=== PATIENT | male | born 1950 | race African-American/Black ===

== ENCOUNTER 2019-11-22 01:03 | Emergency (ER) | payer MEDICARE, OTHER ==
[~2019-11-22] VITALS: Ht 177.8 cm; Wt 97.5 kg
[2019-11-22 01:40] LABS: Basophils # (auto) 0.2 10 ^3/uL (0-0.2); Basophils % (auto) 2.9 % (0.0-2.0); Eosinophils # (auto) 0.1 10 ^3/uL (0-0.8); Eosinophils % (auto) 2.3 % (0.0-7.0); Hematocrit 45.6 % (41.0-53.0); Hemoglobin 15.2 g/dL (13.5-17.5); Lymphocytes # (auto) 2.5 10 ^3/uL (0.4-5.4); Lymphocytes % (auto) 44.2 % (10.0-50.0); Mean Corpuscular Hemoglobin 32.7 pg (28.0-32.0); Mean Corpuscular Hgb Conc. 33.4 g/dL (32.0-36.0); Mean Corpuscular Volume 97.9 fL (80.0-100.0); Monocytes # (auto) 0.7 10 ^3/uL (0-1.3); Monocytes % (auto) 13.3 % (0.0-12.0); Neutrophils # (auto) 2.1 10 ^3/uL (1.6-8.6); Neutrophils % (auto) 37.3 % (37.0-80.0); Nucleated Red Blood Cells % 1.3 %; Platelet Count (auto) 190 10^3/uL (140-450); Red Blood Cells 4.65 10^6/uL (4.5-5.90); Red Cell Distribution Width 13.7 % (11.8-14.3); White Blood Cell 5.6 10^3/uL (4.4-10.8)
[2019-11-22 01:54] LABS: Albumin 3.6 g/dL (3.4-5.0); Anion Gap 6 (5-15); Blood Urea Nitrogen 15 mg/dL (7-18); Calcium 8.9 mg/dL (8.5-10.1); Carbon Dioxide 27 mmol/L (21-32); Chloride 106 mmol/L (98-107); Glucose 113 mg/dL (74-106); Sodium 139 mmol/L (136-145)
[2019-11-22 01:58] LABS: Alanine Aminotransferase 20 U/L (16-61); Aspartate Aminotransferase 16 U/L (15-37); BUN/Creatinine Ratio 12.9; GFR African American 81 mL/min; GFR Non-African American 67 mL/min
[2019-11-22 02:00] LABS: INR 0.97 (0.9-1.15); Partial Thromboplastin Time 27.1 sec (23.64-32.05)
[2019-11-22 02:02] LABS: Alkaline Phosphatase 54 U/L (45-117); Bilirubin, Total 0.4 mg/dL (0.2-1.0); Total Protein 7.1 g/dL (6.4-8.2)
[2019-11-22 03:22] VITALS: BP 125/91
== END 2019-11-22 03:28 | disposition home or self-care (01) ==
LOC: ER 01:06
DX: M54.12 Radiculopathy, cervical region (principal); F41.8 Other specified anxiety disorders; E11.9 Type 2 diabetes mellitus without complications; I25.2 Old myocardial infarction; F17.210 Nicotine dependence, cigarettes, uncomplicated
CPT/HCPCS: 36415; 70450; 71045; 80053; 82962; 83880; 84484; 85025; 85610; 85730; 93005